=== PATIENT | male | born 1945 | race Two or more races ===

== ENCOUNTER 2023-11-27 18:05 | Inpatient (IN) | payer OTHER ==
[~2023-11-27] VITALS: Ht 170.2 cm; Wt 81.3 kg
[2023-11-27] MEDS ORDERED: cefTRIAXone SOD 1,000 MG VL IV ONE (19:00)
[2023-11-27] MEDS: SODIUM CHLORIDE 0.9% 1,000 ML IV ONE (19:07)
[2023-11-27] MEDS: cefTRIAXone 1GM/50ML D5W 50 ML IV ONE (19:14)
[2023-11-27 19:20] VITALS: PULSE 120; RESP 20; O2SAT 93
[2023-11-27 19:22] LABS: Hematocrit 46.4 % (41.0-53.0); Hemoglobin 15.7 g/dL (13.5-17.5); Mean Corpuscular Hemoglobin 31.4 pg (28.0-32.0); Mean Corpuscular Hgb Conc. 33.7 g/dL (32.0-36.0); Mean Corpuscular Volume 93.2 fL (80.0-100.0); Red Blood Cells 4.98 10^6/uL (4.5-5.90); Red Cell Distribution Width 13.3 % (11.8-14.3); White Blood Cell 27.7 10^3/uL (4.4-10.8)
[2023-11-27 19:24] LABS: Basophils % (manual) 0 (0.0-2.0); Blast Cells 0; Eosinophils % (manual) 0 (0-7); Promyelocytes % 0; Reactive Lymphocytes 0
[2023-11-27 19:42] LABS: Alanine Aminotransferase 25 U/L (7-40); Alkaline Phosphatase 71 U/L (46-116); Anion Gap 11 (5-15); Aspartate Aminotransferase 34 U/L (13-40); BUN/Creatinine Ratio 7.2 (10.0-20.0); Bilirubin, Total 0.6 mg/dL (0.2-1.0); Blood Urea Nitrogen 21 mg/dL (9-23); Calcium 9.1 mg/dL (8.5-10.1); Carbon Dioxide 21 mmol/L (20-30); Chloride 104 mmol/L (98-107); Glucose 81 mg/dL (74-106); Potassium 3.6 mmol/L (3.5-5.1); Sodium 136 mmol/L (136-145); Total Protein 6.6 g/dL (5.7-8.2)
[2023-11-27 19:47] LABS: Lactic Acid w/Reflex 4.4 mmol/L (0.4-2.0)
[2023-11-27] MEDS ORDERED: SODIUM CHLORIDE 0.9% 250 ML IV ONE (20:00)
[2023-11-27] MEDS ORDERED: SODIUM CHLORIDE 0.9% 1,000 ML IV ONE (20:00)
[2023-11-27 20:27] LABS: Band Neutrophils % (manual) 34; Giant Platelets Few; Lymphocytes % (manual) 6 (10.0-50.0); Metamyelocytes % 3; Monocytes % (manual) 6 (0-12); Myelocytes % 6; Platelet Estimate Adequate
[2023-11-27 20:29] LABS: Urine Bacteria MANY /hpf (None Seen); Urine Blood 2+ /uL (Negative); Urine Clarity HAZY (Clear); Urine Protein, UAD TRACE (Negative); Urine Specific Gravity 1.009 (1.001-1.035); Urine Urobilinogen Normal (Negative); Urine WBC 193 /hpf (0 - 3); Urine WBC Clumps PRESENT /hpf (None Seen); Urine pH 5.5 (5.0-8.0)
[2023-11-27 20:30] LABS: Urine Color STRAW (Yellow)
[2023-11-27] MEDS: NOREPINEPHRINE 8 MG/250ML KIT 250 ML IV SCH (20:47)
[2023-11-27] MEDS: NOREPINEPHRINE 8 MG/250ML KIT 250 ML IV ONE (20:47)
[2023-11-27] MEDS ORDERED: NITROGLYCERIN 0.4 MG SL TAB SL PRN (21:15)
[2023-11-27] MEDS ORDERED: ACETAMINOPHEN 325 MG TAB PO PRN (21:15)
[2023-11-27] MEDS ORDERED: ONDANSETRON HCL 4 MG/2 ML VIAL IV PRN (21:15)
[2023-11-27] MEDS ORDERED: MORPHINE SULFATE INJ 2 MG/ml SYRG IV PRN (21:15)
[2023-11-28 05:44] LABS: Hematocrit 42.8 % (41.0-53.0); Mean Corpuscular Hemoglobin 31.3 pg (28.0-32.0)
[2023-11-28 05:46] LABS: Hemoglobin 14.4 g/dL (13.5-17.5); Mean Corpuscular Hgb Conc. 33.6 g/dL (32.0-36.0); Mean Corpuscular Volume 93.2 fL (80.0-100.0); Red Cell Distribution Width 13.1 % (11.8-14.3)
[2023-11-28 06:03] LABS: White Blood Cell 33.9 10^3/uL (4.4-10.8)
[2023-11-28 06:04] LABS: Basophils % (manual) 0 (0.0-2.0); Blast Cells 0; Eosinophils % (manual) 0 (0-7); Myelocytes % 0; Promyelocytes % 0; Reactive Lymphocytes 0
[2023-11-28 06:15] LABS: Alanine Aminotransferase 21 U/L (7-40); Albumin 3.7 g/dL (3.2-4.8); Alkaline Phosphatase 69 U/L (46-116); Anion Gap 13 (5-15); Aspartate Aminotransferase 36 U/L (13-40); BUN/Creatinine Ratio 10.5 (10.0-20.0); Blood Urea Nitrogen 28 mg/dL (9-23); Calcium 8.6 mg/dL (8.5-10.1); Carbon Dioxide 18 mmol/L (20-30); Chloride 108 mmol/L (98-107); Glucose 67 mg/dL (74-106); Potassium 3.8 mmol/L (3.5-5.1); Sodium 139 mmol/L (136-145)
[2023-11-28] MEDS ORDERED: VANCOMYCIN PER PHARMACY 0 MG IV SCH (06:15)
[2023-11-28 06:16] LABS: Bilirubin, Total 0.5 mg/dL (0.2-1.0)
[2023-11-28] MEDS ORDERED: VANCOMYCIN 1GM/200ML 200 ML IV SCH (06:45)
[2023-11-28 07:58] VITALS: PULSE 113; RESP 19; O2SAT 95
[2023-11-28] MEDS: cefTRIAXone 1GM/50ML D5W 50 ML IV SCH (09:16)
[2023-11-28] MEDS: VANCOMYCIN 1GM/200ML 200 ML IV ONE (09:17)
[2023-11-28 09:21] LABS: Band Neutrophils % (manual) 24; Lymphocytes % (manual) 2 (10.0-50.0); Metamyelocytes % 13; Monocytes % (manual) 5 (0-12); Platelet Estimate Adequate
[2023-11-28] MEDS: SODIUM CHLORIDE 0.9% 1,000 ML IV ONE (12:34)
[2023-11-28] MEDS: SODIUM CHLORIDE 0.9% 1,000 ML IV SCH (12:35)
[2023-11-28] MEDS: LOPERAMIDE HCL 2 MG CAP/TAB PO ONE (14:15)
[2023-11-28] MEDS: CEFEPIME 2GM/50ML NS 50 ML IV SCH (16:41)
[2023-11-28] MEDS: MELATONIN 5 MG TAB PO SCH (22:00)
[2023-11-29 06:08] LABS: Alanine Aminotransferase 25 U/L (7-40); Albumin 3.2 g/dL (3.2-4.8); Alkaline Phosphatase 81 U/L (46-116); Anion Gap 11 (5-15); Aspartate Aminotransferase 34 U/L (13-40); BUN/Creatinine Ratio 27.3 (10.0-20.0); Calcium 8.2 mg/dL (8.5-10.1); Carbon Dioxide 20 mmol/L (20-30); Chloride 110 mmol/L (98-107); Glucose 67 mg/dL (74-106); Potassium 3.4 mmol/L (3.5-5.1); Sodium 141 mmol/L (136-145)
[2023-11-29 06:09] LABS: Bilirubin, Total 0.4 mg/dL (0.2-1.0); Total Protein 5.3 g/dL (5.7-8.2)
[2023-11-29 06:14] LABS: Hemoglobin 14.2 g/dL (13.5-17.5)
[2023-11-29 06:16] LABS: Mean Corpuscular Hemoglobin 30.7 pg (28.0-32.0); Mean Corpuscular Volume 93.1 fL (80.0-100.0); Red Blood Cells 4.62 10^6/uL (4.5-5.90); Red Cell Distribution Width 13.7 % (11.8-14.3)
[2023-11-29 06:18] LABS: Blood Urea Nitrogen 41 mg/dL (9-23)
[2023-11-29 06:26] LABS: White Blood Cell 35.6 10^3/uL (4.4-10.8)
[2023-11-29 06:28] LABS: Basophils % (manual) 0 (0.0-2.0); Blast Cells 0; Eosinophils % (manual) 0 (0-7); Myelocytes % 0; Promyelocytes % 0; Reactive Lymphocytes 0
[2023-11-29 07:30] VITALS: PULSE 94; RESP 20; O2SAT 96
[2023-11-29] MEDS ORDERED: VANCOMYCIN 1GM/200ML 200 ML IV SCH (08:15)
[2023-11-29] MEDS: POTASSIUM CHLORIDE 20 MEQ, LIDOCAINE 1% (LOCAL ANESTH.) 2 ML in SODIUM CHL 0.9% 100 ML IV ONE (08:41)
[2023-11-29 08:54] LABS: Band Neutrophils % (manual) 31; Lymphocytes % (manual) 5 (10.0-50.0); Metamyelocytes % 10; Monocytes % (manual) 11 (0-12); Platelet Estimate Decreased
[2023-11-29] MEDS: CEFEPIME 2GM/50ML NS 50 ML IV SCH (09:49)
[2023-11-29 19:30] VITALS: PULSE 108; RESP 18; O2SAT 96
[2023-11-29] MEDS: LOPERAMIDE HCL 2 MG CAP/TAB PO PRN (21:44)
[2023-11-30 05:27] LABS: Hemoglobin 13.8 g/dL (13.5-17.5); Mean Corpuscular Hemoglobin 30.8 pg (28.0-32.0); Mean Corpuscular Volume 93.4 fL (80.0-100.0); Red Cell Distribution Width 13.6 % (11.8-14.3)
[2023-11-30 05:43] LABS: Alanine Aminotransferase 30 U/L (7-40); Albumin 3.3 g/dL (3.2-4.8); Alkaline Phosphatase 75 U/L (46-116); Anion Gap 8 (5-15); Aspartate Aminotransferase 32 U/L (13-40); BUN/Creatinine Ratio 20.4 (10.0-20.0); Bilirubin, Total 0.6 mg/dL (0.2-1.0); Blood Urea Nitrogen 20 mg/dL (9-23); Calcium 8.3 mg/dL (8.5-10.1); Carbon Dioxide 20 mmol/L (20-30); Chloride 115 mmol/L (98-107); Glucose 103 mg/dL (74-106); Potassium 3.4 mmol/L (3.5-5.1); Sodium 143 mmol/L (136-145); Total Protein 5.6 g/dL (5.7-8.2)
[2023-11-30 05:56] LABS: Basophils % (manual) 0 (0.0-2.0); Blast Cells 0; Eosinophils % (manual) 0 (0-7); Metamyelocytes % 0; Myelocytes % 0; Promyelocytes % 0; Reactive Lymphocytes 0
[2023-11-30 07:09] LABS: Band Neutrophils % (manual) 7; Lymphocytes % (manual) 4 (10.0-50.0); Monocytes % (manual) 2 (0-12)
[2023-11-30 07:10] LABS: Hypersegmented Neutrophils Present; Platelet Estimate Decreased
[2023-11-30 07:11] LABS: RBC Morphology Normal
[2023-11-30 09:54] VITALS: PULSE 102; RESP 27; O2SAT 97
[2023-11-30] MEDS: POTASSIUM CHLORIDE 20 MEQ, LIDOCAINE 1% (LOCAL ANESTH.) 2 ML in SODIUM CHL 0.9% 100 ML IV ONE (10:05)
[2023-11-30 16:17] VITALS: BP 135/86; PULSE 103; RESP 22; TEMP 97.7; O2SAT 97
[2023-11-30 16:44] VITALS: BP 135/86; PULSE 103; RESP 22; TEMP 97.7; O2SAT 97
[2023-11-30 18:29] VITALS: PULSE 104
[2023-11-30 20:00] VITALS: PULSE 104; RESP 18; O2SAT 96
[2023-11-30 22:00] VITALS: BP 115/66; PULSE 106; RESP 18; TEMP 99.3; O2SAT 92
[2023-12-01 05:00] VITALS: BP 149/92; PULSE 104; RESP 18; TEMP 97.6; O2SAT 96
[2023-12-01 08:00] VITALS: BP 154/94; PULSE 100; PULSE 97; RESP 20; TEMP 98.9; O2SAT 97
[2023-12-01 08:00] LABS: Basophils # (auto) 0 10 ^3/uL (0-0.2); Basophils % (auto) 0.2 % (0.0-2.0); Eosinophils # (auto) 0.3 10 ^3/uL (0-0.8); Monocytes % (auto) 7.2 % (0.0-12.0); Neutrophils # (auto) 10.8 10 ^3/uL (1.6-8.6); Nucleated Red Blood Cells % 0.1 %; Red Cell Distribution Width 13.7 % (11.8-14.3)
[2023-12-01 08:03] LABS: Eosinophils % (auto) 2.1 % (0.0-7.0); Hemoglobin 13.3 g/dL (13.5-17.5); Lymphocytes % (auto) 7.5 % (10.0-50.0); Mean Corpuscular Hemoglobin 30.5 pg (28.0-32.0); Mean Corpuscular Hgb Conc. 33.4 g/dL (32.0-36.0); Mean Corpuscular Volume 91.4 fL (80.0-100.0); Monocytes # (auto) 0.9 10 ^3/uL (0-1.3); Red Blood Cells 4.37 10^6/uL (4.5-5.90)
[2023-12-01 08:11] LABS: Alanine Aminotransferase 34 U/L (7-40); Albumin 3.2 g/dL (3.2-4.8); Alkaline Phosphatase 79 U/L (46-116); Anion Gap 5 (5-15); Aspartate Aminotransferase 34 U/L (13-40); BUN/Creatinine Ratio 15.1 (10.0-20.0); Bilirubin, Total 0.6 mg/dL (0.2-1.0); Blood Urea Nitrogen 13 mg/dL (9-23); Calcium 8.4 mg/dL (8.5-10.1); Carbon Dioxide 22 mmol/L (20-30); Chloride 118 mmol/L (98-107); Glucose 86 mg/dL (74-106); Potassium 3.8 mmol/L (3.5-5.1); Sodium 145 mmol/L (136-145); Total Protein 5.5 g/dL (5.7-8.2)
[2023-12-01 08:28] LABS: Platelet Estimate Decreased
[2023-12-01 08:29] LABS: Large Platelets FEW
[2023-12-01] MEDS: cefTRIAXone 1GM/50ML D5W 50 ML IV SCH (09:51)
[2023-12-01 12:00] VITALS: BP 134/99; PULSE 102; RESP 22; TEMP 98.5; O2SAT 96
[2023-12-01] MEDS ORDERED: CEPH500C PO (14:38)
[2023-12-01 15:03] VITALS: BP 134/99; PULSE 102; RESP 22; TEMP 98.5; O2SAT 96
[2023-12-01 16:00] VITALS: BP 142/94; PULSE 97; RESP 18; TEMP 97.9; O2SAT 98
== END 2023-12-01 17:20 | disposition home or self-care (01) | DRG 871 ==
LOC: EDBD 18:05 → ER 18:05 → TELE 21:17 → TELE-EAST 11-30 15:52
PROVIDERS: ADMIT Internal Medicine Pulmonary Disease; ATTEND Internal Medicine Pulmonary Disease
DX: A41.9 Sepsis, unspecified organism (principal); J96.00 Acute respiratory failure, unspecified whether with hypoxia or hypercapnia; N17.0 Acute kidney failure with tubular necrosis; R65.21 Severe sepsis with septic shock; N39.0 Urinary tract infection, site not specified; I10 Essential (primary) hypertension; K52.9 Noninfective gastroenteritis and colitis, unspecified; F17.210 Nicotine dependence, cigarettes, uncomplicated; E86.0 Dehydration; N40.1 Benign prostatic hyperplasia with lower urinary tract symptoms
CPT/HCPCS: 36415; 71045; 80053; 80202; 81001; 83036; 83605; 85007; 85025; 85027; 87040; 87045; 87077; 87086; 87088; 87186; 87427; 87493; 93005; 96365; 99291; G0378; J0692; J2001